=== PATIENT | female | born 1970 | race Caucasian/White ===

== ENCOUNTER 2020-12-23 07:39 | Emergency (ER) | payer OTHER ==
[~2020-12-23] VITALS: Ht 149.9 cm; Wt 95.9 kg
[2020-12-23 07:43] VITALS: BP 173/84; Ht 149.9 cm; Wt 95.9 kg
== END 2020-12-23 08:02 | disposition home or self-care (01) ==
LOC: D.ER 07:39
DX: Z43.3 Encounter for attention to colostomy (principal); E11.9 Type 2 diabetes mellitus without complications; I10 Essential (primary) hypertension